=== PATIENT | male | born 1955 | race Hispanic/Latino ===

== ENCOUNTER 2017-10-06 06:29 | Day surgery (SDC) | payer MEDICARE ==
[~2017-10-06] VITALS: Ht 172.7 cm; Wt 149.5 kg
[~2017-10-06 06:29] MED LIST: B&C/1TAB3 PO; CALC0.253 PO; DOCU100C33 PO; OLME20TA22 PO; POTA20PA41 PO; SODIUM CHLORIDE 0.9% 1000ML 1,000 ML IV ONE; SUCR500T PO
[2017-10-06 06:57] VITALS: BP 116/77
[2017-10-06 09:17] LABS: POTASSIUM 3.7 mmol/L (3.5-5.1)
[2017-10-06 09:21] LABS: CREATININE 10.4 mg/dL (0.5-1.5)
[2017-10-06] MEDS ORDERED: GLYCOPYRROLATE 0.2 MG/ML 5 ML VIAL ONE (09:30)
[2017-10-06] MEDS ORDERED: FENTANYL CITRATE PF 50 MCG/1 ML 2ML VIAL ONE (09:30)
[2017-10-06] MEDS ORDERED: PROPOFOL 10 MG/ML 20ML VIAL IV ONE (09:30)
[2017-10-06 09:52] VITALS: BP 97/68
[2017-10-06 09:58] VITALS: BP 103/71
[2017-10-06 10:06] VITALS: BP 117/84
== END 2017-10-06 10:22 | disposition home or self-care (01) ==
LOC: DAH 06:29 → ENDO 06:29
PROVIDERS: ATTEND Internal Medicine
DX: K57.30 Diverticulosis of large intestine without perforation or abscess without bleeding (principal); K31.7 Polyp of stomach and duodenum; K31.9 Disease of stomach and duodenum, unspecified; K29.50 Unspecified chronic gastritis without bleeding; E75.5 Other lipid storage disorders; K21.0 Gastro-esophageal reflux disease with esophagitis; Z68.43 Body mass index [BMI] 50.0-59.9, adult; I10 Essential (primary) hypertension; Z98.890 Other specified postprocedural states; N19 Unspecified kidney failure; E66.09 Other obesity due to excess calories; Z79.899 Other long term (current) drug therapy
CPT/HCPCS: 36415; 43239; 43251; 45378; 80048; 88305; 88312; 88342; A4606; J2704; J3010; J3490; J7030